=== PATIENT | male | born 1980 | race Caucasian/White ===

== ENCOUNTER 2023-01-29 17:39 | Emergency (ER) | payer OTHER ==
--- NOTE | 2023-01-29 17:45 | ERPHSYRPT ---
- History of Present Illness Time Seen by Provider: 01/29/23 17:45 Source: patient Exam Limitations: no limitations Physician History: This is a 42-year-old white male who presents with generalized pustule lesions on his body. Patient is is unsure of the exposure whether it is an insect or secondary to a cut of his finger a few weeks ago. He lives in a garage that has a lot of spiders in it. Patient is not on any medications at this time. Timing/Duration: week(s) (3) Quality: itchy, painful Severity: mild Location: torso, hands, extremities Possible Causes: no cause identified Associated Symptoms: change in skin texture, No difficulty breathing Allergies/Adverse Reactions: acetaminophen [From Tylenol-Codeine #3] Allergy (Intermediate, Verified 01/29/23 18:09) codeine [From Tylenol-Codeine #3] Allergy (Intermediate, Verified 01/29/23 18:09) Travel Risk - International Travel Have you traveled outside of the country in past 3 weeks: No - Coronavirus Screening Are you exhibiting any of the following symptoms?: No Close contact with a COVID-19 positive Pt in past 14-21 Days: No - Review of Systems Constitutional: No Symptoms Eyes: No Symptoms Ears, Nose, & Throat: No Symptoms Respiratory: No Symptoms Cardiac: No Symptoms Abdominal/Gastrointestinal: No Symptoms Genitourinary Symptoms: No Symptoms Musculoskeletal: No Symptoms Skin: Rash, Other (Multiple distinct reddened pustules torso and extremities) Neurological: No Symptoms Psychological: No Symptoms Endocrine: No Symptoms Hematologic/Lymphatic: No Symptoms Immunological/Allergic: No Symptoms All Other Systems: Reviewed and Negative - Past Medical History Pertinent Past Medical History: No - Past Surgical History Past Surgical History: No - Nursing Vital Signs Nursing Vital Signs: Initial Vital Signs Temperature 98.2 F 01/29/23 17:52 Pulse Rate 103 H 01/29/23 17:52 Respiratory Rate 14 01/29/23 17:52 Blood Pressure 132/86 01/29/23 17:52 O2 Sat by Pulse Oximetry 100 01/29/23 17:52 Pain Scale Pain Intensity 2 - Physical Exam General Appearance: no apparent distress, alert, thin Eye Exam: PERRL/EOMI, eyes nml inspection Ears, Nose, Throat Exam: normal ENT inspection, moist mucous membranes Neck Exam: normal inspection, non-tender, supple, full range of motion Respiratory Exam: normal breath sounds, lungs clear, airway intact, No chest tenderness, No respiratory distress Cardiovascular Exam: regular rate/rhythm, normal heart sounds, normal peripheral pulses Gastrointestinal/Abdomen Exam: soft, normal bowel sounds, No tenderness Rectal Exam: not done Back Exam: normal inspection, normal range of motion, No CVA tenderness, No vertebral tenderness Extremity Exam: normal range of motion, other (Multiple distinct pustules present) Neurologic Exam: alert, oriented x 3, cooperative, 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 Mildly tender) Lymphatic Exam: No adenopathy SpO2 Interpretation: normal O2 Delivery: Room Air - Course Nursing assessment & vital signs reviewed: Yes Ordered Tests: Medication Summary Discontinued Medications Generic Name Dose Route Start Last Admin Trade Name Shawn PRN Reason Stop Dose Admin Prednisone 20 mg 01/29/23 18:11 01/29/23 18:26 Prednisone 20 Mg Tablet PO 01/29/23 18:12 20 mg STAT ONE Administration Prednisone Confirm 01/29/23 18:24 Prednisone 20 Mg Tablet Administered 01/29/23 18:25 Dose 20 mg .ROUTE .STK-MED ONE Trimethoprim/Sulfamethoxazole 1 tab 01/29/23 18:10 01/29/23 18:26 Smz/Tmp Ds Tablet 1 Tablet PO 01/29/23 18:11 1 tab STAT ONE Administration Trimethoprim/Sulfamethoxazole Confirm 01/29/23 18:24 Smz/Tmp Ds Tablet 1 Tablet Administered 01/29/23 18:25 Dose 1 tab PO .STK-MED ONE - Progress Progress: unchanged Progress Note: 01/29/23 18:35 This patient's medical issue is 1 of low complexity. Level complexity in the work-up performed is based on review the patient's past medical history, review the patient's medication list, review the patient drug allergy list, history of present illness and physical findings on examination. We will obtain a culture of one of the pustules. We will place the patient on Bactrim DS and steroids. Patient is to follow-up with his primary care provider for further evaluation management. Counseled pt/family regarding: diagnosis, need for follow-up Medical Desision Making - Diagnostic Testing Diagnostic test were ordered, analyzed, and reviewed by me: No - Risk of complications The pt has a mod risk of morbidity or mortality based on: Need for prescription drug management - Departure Departure Disposition: Home Clinical Impression: Absence of pustule of skin Condition: Stable Critical Care Time: No Additional Instructions: Keep all rash/pustule site clean with soap and water. Take all your antibiotics. Call your primary care provider to make arranges for follow-up appointment for further evaluation management. Prescriptions: Smz/Tmp Ds Tablet [Bactrim Ds Tablet] 1 udtab PO BID #20 tablet Prednisone 10 mg [Deltasone 10 mg] 10 mg PO TID #12 tablet
[2023-01-29 18:08] VITALS: BP 132/86; PULSE 103; RESP 14; TEMP 98.2; O2SAT 100
[2023-01-29] MEDS ORDERED: DELTASONE 20 MG ONE (18:24)
[2023-01-29] MEDS ORDERED: BACTRIM DS TABLET PO ONE (18:24)
[2023-01-29] MEDS: BACTRIM DS TABLET PO ONE (18:26)
[2023-01-29] MEDS: DELTASONE 20 MG PO ONE (18:26)
== END 2023-01-29 18:50 | disposition home or self-care (01) ==
LOC: ED 17:39
DX: L08.0 Pyoderma (principal); Z79.52 Long term (current) use of systemic steroids
CPT/HCPCS: 87070; 99283; A9270-GY